=== PATIENT | male | born 1965 | race Caucasian/White ===

== ENCOUNTER 2019-01-22 16:47 | Observation (INO) ==
[2019-01-22 17:38] LABS: Basophils % 0.1 % (0.1-2.0); Eosinophils % 0.1 % (0.1-12.0); Hematocrit 44.1 % (42.0-52.0); Lymphocytes # 1.4 K/mm3 (0.7-4.5); Lymphocytes % 9.7 % (10-50); Mean Corpuscular HGB Conc 34.1 g/dL (31.8-35.4); Mean Platelet Volume 7.6 fl (7.4-10.4); Monocytes # 1.3 K/mm3 (0.1-1.0); Monocytes % 8.6 % (1.7-9.3); Neutrophils # 11.9 K/mm3 (1.8-7.8); Neutrophils % 81.3 % (37.0-80.0); Platelet Count 246 K/mm3 (142-424); Red Blood Count 4.96 M/mm3 (4.60-6.20); Red Cell Distribution Width 13.2 % (11.5-17.5); White Blood Count 14.7 K/mm3 (4.8-10.8)
--- NOTE | 2019-01-22 17:39 | Emergency Department Note ---
ED Disposition Clinical Impression: Dental abscess, Sialadenitis, Trismus Disposition: Admitted as Observation Condition on Discharge: Fair Referrals: Kelvin Arboleda MD [Primary Care Provider] - Time of Disposition: 19:39 - Critical Care Critical Care Time: No Attestation: On , the high probability of a clinically significant, sudden or life threatening deterioration of the following system(s) required my full and direct attention, intervention and personal management. The time I documented below is in addition to time spent performing reported procedures but includes the following listed in this critical care notation. Medical Decision Making - Medical Records Medical records reviewed: Yes: I reviewed the patient's medical records. - [place] Inquiry Pt receiving controlled substance: No [place] was queried for this patient: No Vital Signs: 01/22/19 16:48 01/22/19 17:01 01/22/19 17:48 Temperature 100.4 F H Temperature Source Oral Pulse Rate [Right Brachial] 100 H 115 H 109 H Respiratory Rate 18 Blood Pressure [Right Arm] 178/100 H 179/95 H 180/109 H Blood Pressure Mean [Right Arm] 126 123 132 Blood Pressure Source [Right Arm] Automatic Cuff Blood Pressure Position [Right Arm] Sitting 02 Sat by Pulse Oximetry 93 L 97 94 L Oxygen Delivery Method Room Air 01/22/19 18:47 Temperature Temperature Source Pulse Rate [Right Brachial] 111 H Respiratory Rate Blood Pressure [Right Arm] 188/110 H Blood Pressure Mean [Right Arm] 136 Blood Pressure Source [Right Arm] Blood Pressure Position [Right Arm] 02 Sat by Pulse Oximetry 94 L Oxygen Delivery Method - Lab Data Lab results reviewed: Yes: I reviewed the patient's lab results. Lab Results 01/22/19 17:25: WBC 14.7 H, RBC 4.96, Hgb 15.0, Hct 44.1, MCV 89.0, MCH 30.3, MCHC 34.1, RDW 13.2, Plt Count 246, MPV 7.6, Neut % (Auto) 81.3 H, Lymph % (Auto) 9.7 L, [place] % (Auto) 8.6, Eos % (Auto) 0.1, Baso % (Auto) 0.1, Neut # (Auto) 11.9 H, Lymph # (Auto) 1.4, [place] # (Auto) 1.3 H, Eos # (Auto) 0.0, Baso # (Auto) 0.0 01/22/19 17:25: Sodium 136, Potassium 3.5, Chloride 98, Carbon Dioxide 27, Anion Gap 14.5, BUN 7, Creatinine 0.83, Estimated Creat Clear 135, Estimated GFR 98, Est GFR ( Amer) 118, Glucose 127 H, Calcium 9.4, Total Bilirubin 1.1 H, AST 19, ALT 56, Alkaline Phosphatase 89, Total Protein 7.8, Albumin 3.6, Globu juvenal 4.2 H, Albumin/Globulin Ratio 0.9 L 01/22/19 17:25: Lactate 1.5 Result diagrams: 01/22/19 17:25 01/22/19 17:25 Orders (Tests/Meds): ED MEDICATIONS Discontinued Medications Generic Name Dose Route Start Last Admin Trade Name Mekhiq PRN Reason Stop Dose Admin Ioversol 75 ml 01/22/19 18:08 01/22/19 18:09 Rad-Optiray 350 100ml Vial IV 01/22/19 18:09 75 ml ONCE ONE Administration Protocol Methylprednisolone Sodium Succinate 125 mg 01/22/19 17:28 01/22/19 17:48 Solu-Medrol 125mg/2ml Vial IV 01/22/19 17:29 125 mg ONCE ONE Administration Sodium Chloride 10 ml 01/22/19 18:08 01/22/19 18:09 Rad-Saline Flush 10ml Syringe IV 01/22/19 18:09 10 ml ONCE ONE Administration ORDERS Category Date Time Status CT facial bones w con Stat Cat Scan 01/22/19 17:34 Taken Blood Culture Stat Micro 01/22/19 17:50 Received - Physician Consults Physician Consulted: luis Time: 19:37 Reason -: Pt condition Additional Consult: ashley Time: 19:37 Reason -: Admission General Adult HPI - General Chief complaint: Fever Stated complaint: Swollen/Sore Throat/Low-Grade Fever Time Seen by Provider: 01/22/19 17:36 Mode of Arrival: Family Vehicle Source of Information: Patient, Spouse Limitations: No Limitations Description of Symptoms (Recalled from ER Triage Doc. by RN): right side jaw swollen, possible abscess; difficulty swallowing due to the swelling. - History of Present Illness HPI narrative: ? odontogenic - Related Data Allergies Allergy/AdvReac Type Severity Reaction Status Date / Time NO KNOWN DRUG ALLERGIES - Allergy Unknown Uncoded 05/18/17 14:47 NKDA [facility] History - Hepatitis A Screen Drug use history?: No High risk sexual behaviors?: No History of sexually transmitted infection?: No Currently employed?: No Childcare worker?: No Do you have indoor plumbing?: Yes Do you have electricity?: Yes Attestation statement:: This patient has been screened for Hepatitis A risk factors. I have reviewed the patient's past medical history: Yes ROS Obtained: Yes All systems reviewed & no additional complaints - Constitutional Constitutional: Reports fever(s) - ENT Ears, Nose, Mouth, and Throat: Reports facial pain - Integumentary/Breasts Skin/Breast: Reports skin pain, Reports skin swelling Physical Exam - General General appearance: alert - Head Head exam: atraumatic - Eye Eye exam: Present: normal appearance, PERRL, EOMI - ENT ENT exam: Present: other (markedly decreased oral aperture, pain) - Neck Neck exam: Present: normal inspection, full ROM, trachea midline. Absent: meningismus, lymphadenopathy - Chest Chest inspection: Present: normal inspection, symmetric chest wall rise. Absent: tenderness - Respiratory Respiratory exam: Present: normal lung sounds bilaterally. Absent: respiratory distress - Cardiovascular Cardiovascular exam: Present: regular rate, normal rhythm. Absent: JVD - Extremities Exam Extremities exam: Present: normal inspection, full ROM, normal capillary refill. Absent: calf tenderness - Back Exam Back exam: Present: normal inspection. Absent: tenderness - Neurological Exam Neurological exam: Present: alert, oriented X3, CN II-XII intact - Psychiatric Psychiatric exam: Present: normal affect, normal mood - Skin Skin exam: Present: warm, dry, intact, normal color - Lymphatic Lymphatic Findings: no adenopathy
[2019-01-22 17:52] LABS: Albumin Level 3.6 gm/dL (3.4-5.0); Albumin/Globulin Ratio 0.9 (1.1-1.8); Anion Gap 14.5 mEq/L (5-15); Bilirubin,Total 1.1 mg/dL (0.2-1.0); Calcium 9.4 mg/dL (8.5-10.1); Globulin 4.2 gm/dl (1.3-3.2); Total Protein,Serum 7.8 gm/dL (6.4-8.2)
--- NOTE | 2019-01-23 07:34 | Pharmacy Consult Notes ---
[facility] Pharmacy VTE Monitoring - Patient Demographics Admission date: 01/22/19 Report Date: 01/23/19 Time: 07:34 Allergies/Adverse Reactions: Patient Allergies NO KNOWN DRUG ALLERGIES - NKDA Allergy (Unknown, Uncoded 05/18/17 14:47) Height: 1.65 m Weight: 94.801 kg Patient Problems: Current Active Problems Dental abscess (Acute) Sialadenitis (Acute) Trismus (Acute) - VTE Risk Labs: VTE Related Lab Results Hgb 15.0 g/dL (14.1-18.0) 01/22/19 17:25 Hct 44.1 % (42.0-52.0) 01/22/19 17:25 Plt Count 246 K/mm3 (142-424) 01/22/19 17:25 BUN 7 mg/dL (7-18) 01/22/19 17:25 Creatinine 0.83 mg/dL (0.70-1.30) 01/22/19 17:25 Estimated Creat Clear 135 mL/min (50-200) 01/22/19 17:25 Was VTE Risk Assessment Performed: Yes VTE Score: 2 VTE Risk Level: Very Low Risk - Prophylaxis VTE Prophylaxis Ordered?: Yes Types of VTE Prophylaxis: TEDS Knee High Location of Applied Device: Bilateral Lower Extremeties - VTE Diagnosis Confirmed Treatment or plan recommended: Continue Current Treatment
--- NOTE | 2019-01-23 08:05 | History & Physical Report ---
*Admission Date: 01/22/19 *Chief complaint: Right-sided facial swelling/fever *History of present illness: 53-year-old white male with history of hypertension and extremely poor dentition with no dental care over the past several decades, who came to the emergency department with right-sided lower facial pain and swelling. Clinically was felt to have an abscess in the right mandibular area. Antibiotics were started and CT scan was done which which revealed no significant drainable abscess. Recommended to admit to hospital and begin broad-spectrum IV antibiotics. [facility] History I have reviewed the patient's past medical history: Yes Medical History: Reports:: Hypertension Denies:: Cancer, Diabetes Mellitus Type 1, Diabetes Mellitus Type 2, MRSA *Have you ever received a pneumonia vaccine?: No *Have you received a flu vaccine this season?: No Other Surgeries: Yes: Cholecystectomy Amputation: No Fractures: No - *Social History Educational Level: Attended High School Smoking Status: Former smoker Tobacco Type: cigarettes # Packs/Day (cigarettes): 1 #Yrs smoked (if former smoker): 10 Alcohol Intake: never *Occupational Status:: employed Housing: house Household Members: spouse *Travel in the last 8 weeks: None - Psychiatric History Expresses thoughts of harming self/others: None Suicide Plan Description: No Plan Family Hx:: Cancer, Heart Attack Review of Systems - Review of Systems Review of systems:: pertinent systems reviewed and negative unless documented below - Constitutional Reports anorexia - Eyes Denies blind spots, Denies dry eyes - ENT Denies abnormal hearing, Denies poor balance, Denies dizziness - *Cardiovascular Denies chest pain, Denies chest pain at rest, Denies excessive sweating - *Respiratory Denies change in phlegm color, Denies chest congestion, Denies shortness of breath with activity - *Gastrointestinal Denies abdominal pain, Denies change in stools, Denies coffee ground vomit - *Genitourinary Denies difficulty urinating - *Musculoskeletal Denies abnormal walking - Integumentary/Breasts Denies acne, Denies change in skin color - *Neurologic Denies abnormal walking, Denies behavioral changes - Hematologic/Lymphatic Denies easy bleeding Meds Home Medications Medication Instructions Recorded Confirmed Type Aspirin [Aspir 81] 81 mg PO DAILY 01/22/19 01/22/19 History Escitalopram Oxalate 10 mg PO DAILY 01/22/19 01/22/19 History Metoprolol Tartrate [Lopressor 25 mg PO BID 01/22/19 01/22/19 History 25mg tablet] Allergies Allergy/AdvReac Type Severity Reaction Status Date / Time No Known Allergies Allergy Unverified 01/23/19 07:44 Exam Vital signs and Labs for Last 24 Hours: Temp Pulse Resp BP Pulse Ox 98.3 F 81 16 151/85 H 91 L 01/23/19 04:00 01/23/19 04:00 01/23/19 04:00 01/23/19 04:00 01/23/19 04:00 Laboratory Results - last 24 hr 01/22/19 17:25: WBC 14.7 H, RBC 4.96, Hgb 15.0, Hct 44.1, MCV 89.0, MCH 30.3, MCHC 34.1, RDW 13.2, Plt Count 246, MPV 7.6, Neut % (Auto) 81.3 H, Lymph % (Auto) 9.7 L, [place] % (Auto) 8.6, Eos % (Auto) 0.1, Baso % (Auto) 0.1, Neut # (Auto) 11.9 H, Lymph # (Auto) 1.4, [place] # (Auto) 1.3 H, Eos # (Auto) 0.0, Baso # (Auto) 0.0 01/22/19 17:25: Sodium 136, Potassium 3.5, Chloride 98, Carbon Dioxide 27, Anion Gap 14.5, BUN 7, Creatinine 0.83, Estimated Creat Clear 135, Estimated GFR 98, Est GFR ( Amer) 118, Glucose 127 H, Calcium 9.4, Total Bilirubin 1.1 H, AST 19, ALT 56, Alkaline Phosphatase 89, Total Protein 7.8, Albumin 3.6, Globul in 4.2 H, Albumin/Globulin Ratio 0.9 L 01/22/19 17:25: Lactate 1.5 I & O for Last 24 hours: Intake & Output 01/20/19 01/21/19 01/22/19 01/23/19 11:59 11:59 11:59 11:59 Intake Total 1217 / 1217 Balance 1217 / 1217 Weight 209 lb 0.007 oz Narrative: Patient is pleasant. Talkative. Obvious right sided lower mandibular swelling but this is improved over yesterday according to his . The mandible is extremely tender and the parotid gland also is tender and swollen on the right side but I cannot appreciate fluctuance or signs of abscess. Left side is fairly normal. His dentition is impressively awful, with few remaining teeth that are exhibiting significant dental disease and microabscess formation in the periodontal area. Posterior pharynx is clear. He has evidence of significant oral tobacco use. Cardiopulmonary assessment unremarkable. Good distal perfusion. Neurologic exam unremarkable. No abdominal signs or symptoms. Assessment and Plan (1) Dental abscess Current visit: Yes Status: Acute Category: Medical Code(s): K04.7 - Periapical abscess without sinus CT scan does not actually show signs of abscess but given significant swelling needs broad-spectrum antibiotics. ENT consultation. Patient will need complete dental extraction in the near future. (2) Sialadenitis Current visit: Yes Status: Acute Category: Medical Code(s): K11.20 - Sialoadenitis, unspecified Plan as above.
--- NOTE | 2019-01-23 08:17 | Pharmacy Consult Notes ---
- Pharmacy Consult Date: 01/23/19 Time: 08:14 Referring provider: DR. ONEAL Reason for Consult:: VANCOMYCIN DOSING Allergies and ADEs:: Allergies Allergy/AdvReac Type Severity Reaction Status Date / Time No Known Allergies Allergy Unverified 01/23/19 07:44 Home Medications:: Home Medications Medication Instructions Recorded Confirmed Type Aspirin [Aspir 81] 81 mg PO DAILY 01/22/19 01/22/19 History Escitalopram Oxalate 10 mg PO DAILY 01/22/19 01/22/19 History Metoprolol Tartrate [Lopressor 25 mg PO BID 01/22/19 01/22/19 History 25mg tablet] Height: 1.65 m Weight: 94.801 kg Laboratory Results:: Laboratory Results - last 24 hr 01/22/19 17:25: WBC 14.7 H, RBC 4.96, Hgb 15.0, Hct 44.1, MCV 89.0, MCH 30.3, MCHC 34.1, RDW 13.2, Plt Count 246, MPV 7.6, Neut % (Auto) 81.3 H, Lymph % (Auto) 9.7 L, [place] % (Auto) 8.6, Eos % (Auto) 0.1, Baso % (Auto) 0.1, Neut # (Auto) 11.9 H, Lymph # (Auto) 1.4, [place] # (Auto) 1.3 H, Eos # (Auto) 0.0, Baso # (Auto) 0.0 01/22/19 17:25: Sodium 136, Potassium 3.5, Chloride 98, Carbon Dioxide 27, Anion Gap 14.5, BUN 7, Creatinine 0.83, Estimated Creat Clear 135, Estimated GFR 98, Est GFR ( Amer) 118, Glucose 127 H, Calcium 9.4, Total Bilirubin 1.1 H, AST 19, ALT 56, Alkaline Phosphatase 89, Total Protein 7.8, Albumin 3.6, Globulin 4.2 H, Albumin/Globulin Ratio 0.9 L 01/22/19 17:25: Lactate 1.5 Medical History: Reports:: Hypertension Denies:: Cancer, Diabetes Mellitus Type 1, Diabetes Mellitus Type 2, MRSA Assessment and Plan (1) Dental abscess Current visit: Yes Status: Acute Category: Medical Code(s): K04.7 - Periapical abscess without sinus (2) Sialadenitis Current visit: Yes Status: Acute Category: Medical Code(s): K11.20 - Sialoadenitis, unspecified - Assessment and plan all Dx Assessment and Plan for all problems:: BASED ON PATIENT'S FACTORS, RECOMMENDED PATIENT CONTINUE WITH VANCOMYCIN 1750 MG Q12H FROM OVERNIGHT. WILL OBTAIN TROUGH LEVEL PRIOR TO DOSE IN THE AM. PHARMACY WILL FOLLOW DAILY AND ADJUST APPROPRIATE.
--- NOTE | 2019-01-23 13:25 | Consult Report ---
*Admission Date: 01/22/19 *Reason for consult:: Right submandibular sialadenitis *History of present illness: This patient presented to the ED initially for right submandibular swelling/abscess. [facility] History I have reviewed the patient's past medical history: Yes Medical History: Reports:: Hypertension Denies:: Cancer, Diabetes Mellitus Type 1, Diabetes Mellitus Type 2, MRSA *Have you ever received a pneumonia vaccine?: No *Have you received a flu vaccine this season?: No Other Surgeries: Yes: Cholecystectomy Amputation: No Fractures: No - *Social History Educational Level: Attended High School Smoking Status: Former smoker Tobacco Type: cigarettes # Packs/Day (cigarettes): 1 #Yrs smoked (if former smoker): 10 Alcohol Intake: never *Occupational Status:: employed Housing: house Household Members: spouse *Travel in the last 8 weeks: None - Psychiatric History Expresses thoughts of harming self/others: None Suicide Plan Description: No Plan Family Hx:: Cancer, Heart Attack Review of Systems - ENT Reports dental pain Comments: right facial swelling/pain secondary to dental abscess - *Neurologic Denies abnormal walking, Denies abnormal hearing, Denies behavioral changes, Denies unsteadiness, Denies dizziness Meds Home Medications Medication Instructions Recorded Confirmed Type Aspirin [Aspir 81] 81 mg PO DAILY 01/22/19 01/22/19 History Escitalopram Oxalate 10 mg PO DAILY 01/22/19 01/22/19 History Metoprolol Tartrate [Lopressor 25 mg PO BID 01/22/19 01/22/19 History 25mg tablet] Allergies Allergy/AdvReac Type Severity Reaction Status Date / Time No Known Allergies Allergy Unverified 01/23/19 07:44 Exam Vital signs and Labs for Last 24 Hours: Temp Pulse Resp BP Pulse Ox 97.9 F 91 H 18 126/75 95 01/23/19 08:00 01/23/19 08:00 01/23/19 08:00 01/23/19 08:00 01/23/19 08:00 Laboratory Results - last 24 hr 01/22/19 17:25: WBC 14.7 H, RBC 4.96, Hgb 15.0, Hct 44.1, MCV 89.0, MCH 30.3, MCHC 34.1, RDW 13.2, Plt Count 246, MPV 7.6, Neut % (Auto) 81.3 H, Lymph % (Auto) 9.7 L, [place] % (Auto) 8.6, Eos % (Auto) 0.1, Baso % (Auto) 0.1, Neut # (Auto) 11.9 H, Lymph # (Auto) 1.4, [place] # (Auto) 1.3 H, Eos # (Auto) 0.0, Baso # (Auto) 0.0 01/22/19 17:25: Sodium 136, Potassium 3.5, Chloride 98, Carbon Dioxide 27, Anion Gap 14.5, BUN 7, Creatinine 0.83, Estimated Creat Clear 135, Estimated GFR 98, Est GFR ( Amer) 118, Glucose 127 H, Calcium 9.4, Total Bilirubin 1.1 H, AST 19, ALT 56, Alkaline Phosphatase 89, Total Protein 7.8, Albumin 3.6, Globulin 4.2 H, Albumin/Globulin Ratio 0.9 L 01/22/19 17:25: Lactate 1.5 I & O for Last 24 hours: Intake & Output 01/20/19 01/21/19 01/22/19 01/23/19 23:59 23:59 23:59 23:59 Intake Total 150 / 150 1487 / 1487 Balance 150 / 150 1487 / 1487 Weight 209 lb 1 oz 209 lb 0.007 oz - *Routine HEENT Exam Head: Present: normocephalic Eye: Present: EOMI, PERRL ENT: Present: mucous membranes moist Comments: Right submandibular sialadenitis had improved since admission on steroid and antibiotic treatment. Does however have a right dental abscess and needs to follow-up with his dentist as that was probably a factor in initiating the sialadenitis. He will follow-up with me as necessary. Dr. Bradley Richards please send a copy to Dr. Galeana and to Dr. Erik Hewitt Internal Medicine - CN: Reslt - Labs CBC & Chem 7: 01/22/19 17:25 01/22/19 17:25 Labs: Short CBC 01/22/19 Range/Units 17:25 WBC 14.7 H (4.8-10.8) K/mm3 Hgb 15.0 (14.1-18.0) g/dL Hct 44.1 (42.0-52.0) % Plt Count 246 (142-424) K/mm3 BMP 01/22/19 17:25 Sodium 136 Potassium 3.5 Chloride 98 Carbon Dioxide 27 BUN 7 Creatinine 0.83 Glucose 127 H Calcium 9.4 Liver Function 01/22/19 Range/Units 17:25 Total Bilirubin 1.1 H (0.2-1.0) mg/dL AST 19 (15-37) U/L ALT 56 (12-78) U/L Alkaline Phosphatase 89 (46-116) U/L Albumin 3.6 (3.4-5.0) gm/dL Assessment and Plan (1) Dental abscess Current visit: Yes Status: Acute Category: Medical Code(s): K04.7 - Periapical abscess without sinus (2) Sialadenitis Current visit: Yes Status: Acute Category: Medical Code(s): K11.20 - Sialoadenitis, unspecified - Assessment and plan all Dx Assessment and Plan for all problems:: Right submandibular sialadenitis had improved since admission on steroid and antibiotic treatment. Does however have a right dental abscess and needs to follow-up with his dentist as that was probably a factor in initiating the sialadenitis. He will follow-up with me as necessary. Dr. Bradley Richards please send a copy to Dr. Galeana and to Dr. Erik Hewitt
--- NOTE | 2019-01-23 13:52 | Discharge Summary ---
General - General Admission date:: 01/22/19 Discharge date: 01/23/19 HPI HPI: 53-year-old white male with history of hypertension and extremely poor dentition with no dental care over the past several decades, who came to the emergency department with right-sided lower facial pain and swelling. Clinically was felt to have an abscess in the right mandibular area. Antibiotics were started and CT scan was done which which revealed no significant drainable abscess. Recommended to admit to hospital and begin broad-spectrum IV antibiotics. Hospital Course Hospital Course: Patient was admitted as noted, improved overnight with Solu-Medrol and broad- spectrum antibiotics. ENT evaluation occurred, recommended dental evaluation and follow-up with antibiotics. Patient will be discharged with a soft diet, Augmentin and clindamycin, recommended dental evaluation GIULIA. Objective Vital signs: Temp Pulse Resp BP Pulse Ox 97.9 F 91 H 18 126/75 95 01/23/19 08:00 01/23/19 08:00 01/23/19 08:00 01/23/19 08:00 01/23/19 08:00 Narrative: See exam note from H&P dictated this morning Results Labs on day of discharge: Labs from last 24 hours 01/22/19 01/22/19 01/22/19 17:25 17:25 17:25 WBC 14.7 H RBC 4.96 Hgb 15.0 Hct 44.1 MCV 89.0 MCH 30.3 MCHC 34.1 RDW 13.2 Plt Count 246 MPV 7.6 Neut % (Auto) 81.3 H Lymph % (Auto) 9.7 L [place] % (Auto) 8.6 Eos % (Auto) 0.1 Baso % (Auto) 0.1 Neut # (Auto) 11.9 H Lymph # (Auto) 1.4 [place] # (Auto) 1.3 H Eos # (Auto) 0.0 Baso # (Auto) 0.0 Sodium 136 Potassium 3.5 Chloride 98 Carbon Dioxide 27 Anion Gap 14.5 BUN 7 Creatinine 0.83 Estimated Creat Clear 135 Estimated GFR 98 Est GFR ( Amer) 118 Glucose 127 H Lactate 1.5 Calcium 9.4 Total Bilirubin 1.1 H AST 19 ALT 56 Alkaline Phosphatase 89 Total Protein 7.8 Albumin 3.6 Globulin 4.2 H Albumin/Globulin Ratio 0.9 L DS: Diagnosis - Discharge Diagnosis (1) Dental abscess Status: Acute (2) Sialadenitis Status: Acute Discharge Plan - Patient Discharge Instructions ACTIVITY: Continue current activity DIET: continue same diet Patient Instructions: Tooth Abscess, DI for Fever (Symptom) -- Adult - Follow up Plan Follow up with: Kelvin Arboleda MD [Primary Care Provider] - 2 weeks Disposition: Home, Self-Senior Living Medications: Home Medications Medication Instructions Recorded Confirmed Type Aspirin [Aspir 81] 81 mg PO DAILY 01/22/19 01/22/19 History Metoprolol Tartrate [Lopressor 25 mg PO BID 01/22/19 01/22/19 History 25mg tablet] RX: Escitalopram Oxalate 10 mg PO DAILY 01/22/19 01/22/19 History Amoxicillin/Potassium Clav 1 tab PO Q12H #20 tab 01/23/19 Rx [Augmentin 875-125 Tablet] Clindamycin HCl [Clindamycin HCl 300 mg PO Q8 #21 cap 01/23/19 Rx 300mg Cap] RX: dexAMETHasone [Decadron 4mg 4 mg PO TID #15 tab 01/23/19 Rx tablet] Prescriptions/Medication Reconciliation: New RX: dexAMETHasone [Decadron 4mg tablet] 4 mg PO TID #15 tab Amoxicillin/Potassium Clav [Augmentin 875-125 Tablet] 1 tab PO Q12H #20 tab Clindamycin HCl [Clindamycin HCl 300mg Cap] 300 mg PO Q8 #21 cap Continued RX: Escitalopram Oxalate 10 mg PO DAILY Aspirin [Aspir 81] 81 mg PO DAILY Metoprolol Tartrate [Lopressor 25mg tablet] 25 mg PO BID - Problem Reconciliation Problems Reviewed?: Yes
== END 2019-01-23 15:13 | disposition home or self-care (01) ==
LOC: ER 16:47 → 2ND 16:47
PROVIDERS: ADMIT Internal Medicine Adolescent Medicine; ATTEND Internal Medicine Adolescent Medicine
CPT/HCPCS: 36415; 70487; 80053; 83605; 85025; 87040; 96365; 96367; 96375; 99284; G0378; J2543; J3370; Q9967

== ENCOUNTER → 2019-04-29 10:56 | Outpatient (CLI) | payer OTHER, SELFPAY ==
[2019-04-29 13:38] LABS: Alanine Aminotransferase 51 U/L (12-78); Albumin Level 3.8 gm/dL (3.4-5.0); Albumin/Globulin Ratio 1.2 (1.1-1.8); Alkaline Phosphatase 100 U/L (46-116); Anion Gap 14.2 mEq/L (5-15); Aspartate Amino Transferase 27 U/L (15-37); Bilirubin,Total 0.4 mg/dL (0.2-1.0); Blood Urea Nitrogen 12 mg/dL (7-18); Calcium 9.3 mg/dL (8.5-10.1); Carbon Dioxide 26 mmol/L (21.0-32.0); Chloride 102 mmol/L (98-107); Chol/HDL Ratio 3.7 (1-3.5); Cholesterol 185 mg/dL (140-200); Creatinine,Serum 0.71 mg/dL (0.70-1.30); Estimated Glomerular Filt Rate 117 ml/min (>60); GFR (African American) 142 ML/MIN (>60); Globulin 3.2 gm/dl (1.3-3.2); Glucose 108 mg/dL (74-106); HDL Cholesterol 50 mg/dL (27-67); LDL Cholesterol 106 mg/dL (0-130); Potassium 4.2 mmoL/L (3.5-5.1); Sodium 138 mmol/L (136-145); Triglycerides 146 mg/dL (30-200); VLDL Cholesterol 29 mg/dL (0-40)
== END ==
PROVIDERS: Visit Provider Internal Medicine Adolescent Medicine
DX: I10 Essential (primary) hypertension (principal); Z86.39 Personal history of other endocrine, nutritional and metabolic disease
CPT/HCPCS: 36415; 80053; 80061

== ENCOUNTER → 2021-06-28 08:01 | Outpatient (CLI) | payer OTHER, SELFPAY | PROVIDERS: Visit Provider Nurse Practitioner | DX: U07.1 COVID-19 (principal) | CPT/HCPCS: C9803; U0003; U0005 ==

== ENCOUNTER → 2021-07-06 08:19 | Outpatient (CLI) | payer OTHER, SELFPAY | PROVIDERS: Visit Provider Nurse Practitioner | DX: U07.1 COVID-19 (principal) | CPT/HCPCS: C9803; U0003; U0005 ==

== ENCOUNTER 2023-01-27 18:52 | Emergency (ER) | payer OTHER, SELFPAY ==
[2023-01-27 18:52] VITALS: BP 189/100; PULSE 92; RESP 16; TEMP 36.6; O2SAT 98; BMI 32.1
--- NOTE | 2023-01-27 18:53 | ECG_ITS ---
APPROVED REPORT Exam: Resting ECG HR:84 bpm ECG Measurements Heart Rate 84 AXES MD 166 P 15 QRSd 91 QRS 31 QT 354 T 58 QTc 395 Conclusion SINUS RHYTHM NORMAL ECG UNCONFIRMED REPORT Electronically signed by : Kelvin Arboleda MD 01/28/2023 18:33:27
--- NOTE | 2023-01-27 18:59 | XR_ITS ---
PROCEDURE INFORMATION: Exam: XR Chest Exam date and time: 01/27/2023 7:05 PM Age: 57 years old Clinical indication: Sternal or substernal pain; Additional info: Chest pain TECHNIQUE: Imaging protocol: Radiologic exam of the chest. Views: 1 view. COMPARISON: No relevant prior studies available. FINDINGS: Lungs: No evidence of acute airspace consolidation. No pulmonary edema. Pleural spaces: No large pleural effusion. No pneumothorax. Heart/Mediastinum: Cardiomediastinal silouhette is within normal limits. Bones/joints: No evidence of acute osseous abnormality. IMPRESSION: No acute findings.
[2023-01-27 19:12] LABS: Basophils % 0.5 % (0.1-2.0); Eosinophils # 0.2 K/mm3 (0.0-0.4); Eosinophils % 2.6 % (0.1-12.0); Hematocrit 44.6 % (42.0-52.0); Hemoglobin 15.4 g/dL (14.1-18.0); Lymphocytes # 2.2 K/mm3 (0.7-4.5); Mean Corpuscular HGB Conc 34.5 g/dL (31.8-35.4); Mean Corpuscular Volume 86.9 fl (80-94); Monocytes # 0.4 K/mm3 (0.1-1.0); Monocytes % 5.7 % (1.7-9.3); Neutrophils # 4.5 K/mm3 (1.8-7.8); Neutrophils % 61.3 % (37.0-80.0); Platelet Count 353 K/mm3 (142-424); Red Blood Count 5.13 M/mm3 (4.60-6.20); Red Cell Distribution Width 13.8 % (11.5-17.5); White Blood Count 7.4 K/mm3 (4.8-10.8)
[2023-01-27 19:16] LABS: Alanine Aminotransferase 31 U/L (12-78); Albumin Level 4.7 g/dl (3.5-5.0); Albumin/Globulin Ratio 1.3 (1.1-1.8); Alkaline Phosphatase 99 U/L (38-126); Anion Gap 13.1 mEq/L (5-15); Aspartate Amino Transferase 30 U/L (17-59); Blood Urea Nitrogen 11 mg/dl (9-20); Calcium 9.5 mg/dl (8.4-10.2); Carbon Dioxide 28 mmol/L (22.0-30.0); Chloride 102 mmol/L (98-107); Creatinine Clearance Estimated 148 mL/min (50-200); Estimated Glomerular Filt Rate 117 ml/min (>60); GFR (African American) 142 ML/MIN (>60); Globulin 3.5 g/dL (1.3-3.2); Glucose 98 mg/dl (74-100); Potassium 3.1 mmoL/L (3.5-5.1); Sodium 140 mmol/L (136-145); Total Protein,Serum 8.2 g/dl (6.3-8.2)
[2023-01-27 19:30] LABS: Troponin I < 0.01 ng/ml (0.00-0.034)
[2023-01-27 20:32] VITALS: BP 163/97; PULSE 69; RESP 16; TEMP 36.7; O2SAT 97
[2023-01-27 20:42] VITALS: BP 163/91; PULSE 69; RESP 16; TEMP 36.7; O2SAT 97
--- NOTE | 2023-01-29 13:58 | HMH.EDGENADL ---
Discharge Plan Disposition Patient Disposition: Home, Self-Care Condition: Good Prescriptions Prescriptions: New metoprolol succinate 25 mg tablet extended release 24 hr 25 mg PO BID Qty: 20 0RF Discontinued metoprolol tartrate 25 MG tablet 25 mg PO BID No Action aspirin 81 MG tablet,delayed release (DR/EC) 81 mg PO DAILY escitalopram oxalate 10 MG tablet 10 mg PO DAILY clindamycin HCl 300 MG capsule 300 mg PO Q8 Qty: 21 0RF dexamethasone 4 MG tablet 4 mg PO TID Qty: 15 0RF amoxicillin-pot clavulanate 1 EACH tablet 1 tab PO Q12H Qty: 20 0RF Referrals Follow up/Referrals: Kelvin Arboleda MD [Primary Care Provider] - See instructions Clinical Impressions Clinical Impression: Hypertensive urgency Instructions Patient Instructions: Essential Hypertension Discharge ED Provider: Rony Danielle Adult HPI General Chief complaint: Chest Pain Stated complaint: CP Time Seen by Provider: 01/27/23 20:17 Mode of Arrival: Ambulatory Source of Information: Patient Limitations: No Limitations Description of Symptoms (Recalled from ER Triage Doc. by RN): pt c/o achy chest pain episodes x couple day. History of Present Illness HPI narrative: Patient presents for evaluation of substernal nonradiating nonpleuritic nonexertional nonpositional chest pain described as dull with no associated palpitations or dyspnea. Patient has had similar symptoms before associated with hypertension. Has not seen a doctor in several years. Was previously prescribed antihypertensive but is not sure what that medication was at this time. Denies any recreational drug use. No sick contacts, no fevers no chills no nausea no vomiting. No syncope or presyncope. No leg pain or leg swelling. No associated vision complaints or headache. No previous therapies today. Patient does have history of tobacco use. No family history of sudden or MA at young age. Denies any dysuria or dark urine Related Data Home Medications Medication Instructions Recorded Confirmed aspirin 81 mg tablet,delayed 81 mg PO DAILY HEART HEALTH 01/22/19 01/22/19 release escitalopram oxalate 10 mg tablet 10 mg PO DAILY MOOD 01/22/19 01/22/19 Previous Rx's Medication Instructions Recorded amoxicillin 875 mg-potassium 1 tab PO Q12H #20 tabs 01/23/19 clavulanate 125 mg tablet clindamycin HCl 300 mg capsule 300 mg PO Q8 #21 caps 01/23/19 dexamethasone 4 mg tablet 4 mg PO TID #15 tabs 01/23/19 metoprolol succinate 25 mg 25 mg PO BID #20 tabs 01/27/23 tablet,extended release 24 hr Allergies Allergy/AdvReac Type Severity Reaction Status Date / Time No Known Allergies Allergy Unverified 01/23/19 07:44 [facility] Disclaimer: The information contained in this section may have been updated after the patient was seen, as this information can be updated by other users. Social History Smoking Status: Current every day smoker tobacco type: cigarettes packs per day: 1 second hand exposure: No alcohol intake: never current occupational status: employed Travel in the last 8 weeks: None household members: spouse housing: house current occupation: heavy machined parts metal sprayer current occupational exposures/hazards: No caffeine: Yes ROS Obtained: Yes Systems reviewed as appropriate & no additional complaints except as documented Physical Exam General General appearance: alert and in no apparent distress Head Head exam: atraumatic and normocephalic Eye Eye exam: Present normal appearance Neck Neck exam: Present normal inspection Chest Chest inspection: Present normal inspection and symmetric chest wall rise Respiratory Respiratory exam: Present normal lung sounds bilaterally; Absent respiratory distress Cardiovascular Cardiovascular exam: Present regular rate and normal rhythm Abdominal Exam Abdominal exam: Present soft Neurological Exam Neurological exam: Present alert and orie
== END 2023-01-27 20:47 | disposition home or self-care (01) ==
PROVIDERS: Emergency Provider Emergency Medicine; PCP Internal Medicine Adolescent Medicine
DX: I16.0 Hypertensive urgency (principal); R07.9 Chest pain, unspecified
CPT/HCPCS: 71045; 80053; 84484; 85025; 93005; 99285

== ENCOUNTER → 2023-02-02 15:22 | Outpatient (CLI) | payer OTHER, SELFPAY ==
[2023-02-02 17:12] LABS: Basophils % 0.3 % (0.1-2.0); Eosinophils # 0.1 K/mm3 (0.0-0.4); Eosinophils % 1.7 % (0.1-12.0); Hematocrit 42.6 % (42.0-52.0); Mean Corpuscular HGB Conc 35.2 g/dL (31.8-35.4); Mean Corpuscular Hemoglobin 30.9 pg (27.0-31.2); Mean Corpuscular Volume 87.9 fl (80-94); Mean Platelet Volume 8.4 fl (7.4-10.4); Monocytes # 0.5 K/mm3 (0.1-1.0); Monocytes % 5.7 % (1.7-9.3); Neutrophils % 69.4 % (37.0-80.0); Platelet Count 321 K/mm3 (142-424); Red Blood Count 4.85 M/mm3 (4.60-6.20); White Blood Count 8.6 K/mm3 (4.8-10.8)
[2023-02-02 17:43] LABS: Chloride 103 mmol/L (98-107)
[2023-02-02 17:44] LABS: Potassium 3.7 mmoL/L (3.5-5.1); Sodium 142 mmol/L (136-145)
[2023-02-02 17:46] LABS: Alanine Aminotransferase 31 U/L (12-78); Alkaline Phosphatase 90 U/L (38-126); Anion Gap 14.7 mEq/L (5-15); Aspartate Amino Transferase 30 U/L (17-59); Bilirubin,Total 0.8 mg/dl (0.2-1.3); Blood Urea Nitrogen 7 mg/dl (9-20); Carbon Dioxide 28 mmol/L (22.0-30.0); Estimated Glomerular Filt Rate 117 ml/min (>60); GFR (African American) 142 ML/MIN (>60)
[2023-02-02 17:47] LABS: Albumin/Globulin Ratio 1.5 (1.1-1.8); Calcium 9.7 mg/dl (8.4-10.2); Globulin 2.7 g/dL (1.3-3.2); Glucose 78 mg/dl (74-100); Magnesium 1.8 mg/dl (1.6-2.3); Total Protein,Serum 6.7 g/dl (6.3-8.2)
== END ==
LOC: LAB 15:23
PROVIDERS: PCP Internal Medicine Adolescent Medicine; Visit Provider Physician Assistant
DX: I10 Essential (primary) hypertension (principal); E87.6 Hypokalemia
CPT/HCPCS: 36415; 80053; 83735; 85025

== ENCOUNTER → 2023-02-13 08:31 | Outpatient (CLI) | payer OTHER, SELFPAY ==
[2023-02-13 09:36] LABS: Chol/HDL Ratio 6.4 (1-3.5); Cholesterol 306 mg/dl (140-200); HDL Cholesterol 48 mg/dl (40-60); Triglycerides 215 mg/dl (30-150); VLDL Cholesterol 43 mg/dL (0-40)
[2023-02-13 09:54] LABS: 25-OH Vitamin D, Total 21.9 ng/mL (30-100)
[2023-02-13 10:07] LABS: Thyroid Stimulating Hormone 3.64 uIU/mL (0.465-4.68)
[2023-02-13 10:25] LABS: Vitamin B12 186 pg/mL (239-931)
== END ==
PROVIDERS: PCP Physician Assistant; Visit Provider Physician Assistant
DX: Z00.00 Encounter for general adult medical examination without abnormal findings (principal); E55.9 Vitamin D deficiency, unspecified; Z79.899 Other long term (current) drug therapy
CPT/HCPCS: 36415; 80061; 82306; 82607; 83036; 84443

== ENCOUNTER → 2023-05-21 09:29 | Outpatient (CLI) | payer OTHER, SELFPAY ==
[2023-05-21 10:50] LABS: Chloride 102 mmol/L (98-107); Potassium 3.7 mmoL/L (3.5-5.1); Sodium 141 mmol/L (136-145)
[2023-05-21 10:52] LABS: Alanine Aminotransferase 24 U/L (12-78); Aspartate Amino Transferase 27 U/L (17-59); Blood Urea Nitrogen 12 mg/dl (9-20); Estimated Glomerular Filt Rate 117 ml/min (>60); GFR (African American) 141 ML/MIN (>60)
[2023-05-21 10:53] LABS: Albumin Level 4.2 g/dl (3.5-5.0); Albumin/Globulin Ratio 1.7 (1.1-1.8); Alkaline Phosphatase 101 U/L (38-126); Anion Gap 10.7 mEq/L (5-15); Bilirubin,Total 0.7 mg/dl (0.2-1.3); Calcium 9.2 mg/dl (8.4-10.2); Carbon Dioxide 32 mmol/L (22.0-30.0); Chol/HDL Ratio 3.5 (1-3.5); Cholesterol 149 mg/dl (140-200); Globulin 2.5 g/dL (1.3-3.2); Glucose 115 mg/dl (74-100); HDL Cholesterol 42 mg/dl (40-60); Total Protein,Serum 6.7 g/dl (6.3-8.2); Triglycerides 119 mg/dl (30-150); VLDL Cholesterol 24 mg/dL (0-40)
[2023-05-21 11:05] LABS: Direct LDL Cholesterol 86.07 mg/dL (100-129)
[2023-05-21 11:10] LABS: 25-OH Vitamin D, Total 36.4 ng/mL (30-100)
[2023-05-21 11:46] LABS: Vitamin B12 > 1000 pg/mL (239-931)
== END ==
LOC: LAB 09:30
PROVIDERS: PCP Internal Medicine Adolescent Medicine; Visit Provider Physician Assistant
DX: I10 Essential (primary) hypertension (principal); E55.9 Vitamin D deficiency, unspecified; E53.8 Deficiency of other specified B group vitamins; E78.2 Mixed hyperlipidemia
CPT/HCPCS: 36415; 80053; 80061; 82306; 82607

== ENCOUNTER 2024-02-26 09:01 | Outpatient (CLI) | payer BC, SELFPAY ==
[2024-02-26 10:04] LABS: Alanine Aminotransferase 38 U/L (12-78); Albumin Level 3.9 g/dl (3.5-5.0); Albumin/Globulin Ratio 1.6 (1.1-1.8); Alkaline Phosphatase 104 U/L (38-126); Anion Gap 7.8 mEq/L (5-15); Aspartate Amino Transferase 32 U/L (17-59); Bilirubin,Total 0.8 mg/dl (0.2-1.3); Blood Urea Nitrogen 11 mg/dl (9-20); Carbon Dioxide 25 mmol/L (22.0-30.0); Chloride 105 mmol/L (98-107); Chol/HDL Ratio 3.9 (1-3.5); Cholesterol 149 mg/dl (140-200); Estimated Glomerular Filt Rate 139 ml/min (>60); GFR (African American) 169 ML/MIN (>60); Globulin 2.5 g/dL (1.3-3.2); Glucose 105 mg/dl (74-100); HDL Cholesterol 38 mg/dl (40-60); Potassium 3.8 mmoL/L (3.5-5.1); Sodium 134 mmol/L (136-145); Total Protein,Serum 6.4 g/dl (6.3-8.2); Triglycerides 185 mg/dl (30-150); VLDL Cholesterol 37 mg/dL (0-40)
[2024-02-26 10:15] LABS: Direct LDL Cholesterol 81.07 mg/dL (100-129)
[2024-02-26 10:16] LABS: Basophils % 0.5 % (0.1-2.0); Eosinophils # 0.2 K/mm3 (0.0-0.4); Eosinophils % 2.8 % (0.1-12.0); Hematocrit 42.7 % (42.0-52.0); Hemoglobin 14.4 g/dL (14.1-18.0); Lymphocytes % 23.8 % (10-50); Mean Corpuscular HGB Conc 33.7 g/dL (31.8-35.4); Mean Corpuscular Volume 91.8 fl (80-94); Mean Platelet Volume 8.2 fl (7.4-10.4); Monocytes # 0.7 K/mm3 (0.1-1.0); Monocytes % 8.3 % (1.7-9.3); Neutrophils # 5.3 K/mm3 (1.8-7.8); Neutrophils % 64.7 % (37.0-80.0); Platelet Count 303 K/mm3 (142-424); Red Blood Count 4.65 M/mm3 (4.60-6.20); Red Cell Distribution Width 13.9 % (11.5-17.5); White Blood Count 8.2 K/mm3 (4.8-10.8)
[2024-02-26 10:21] LABS: 25-OH Vitamin D, Total 36.2 ng/mL (30-100); Hemoglobin A1C 5.9 % (4.0-6.0)
[2024-02-26 10:34] LABS: Thyroid Stimulating Hormone 2.89 uIU/mL (0.465-4.68)
[2024-02-26 10:53] LABS: Vitamin B12 522 pg/mL (239-931)
== END 2024-02-26 23:59 | disposition home or self-care (01) ==
LOC: LAB 09:03
PROVIDERS: PCP Physician Assistant; Visit Provider Physician Assistant
DX: Z00.00 Encounter for general adult medical examination without abnormal findings (principal); I10 Essential (primary) hypertension; Z83.49 Family history of other endocrine, nutritional and metabolic diseases; E66.9 Obesity, unspecified; R53.83 Other fatigue; Z68.35 Body mass index [BMI] 35.0-35.9, adult; Z83.3 Family history of diabetes mellitus; Z86.39 Personal history of other endocrine, nutritional and metabolic disease; Z72.0 Tobacco use
CPT/HCPCS: 36415; 80050; 80053; 80061; 82306; 82607; 83036; 84443; 85025

== ENCOUNTER 2024-07-19 16:21 | Outpatient (CLI) | payer BC, SELFPAY ==
--- NOTE | 2024-07-19 | XR_ITS ---
PROCEDURE INFORMATION: Exam: XR Chest Exam date and time: 07/19/2024 4:41 PM Age: 59 years old Clinical indication: Shortness of breath TECHNIQUE: Imaging protocol: Radiologic exam of the chest. Views: 2 views. COMPARISON: CR XR CHEST PORTABLE 01/27/2023 7:05 PM FINDINGS: Lungs: Increased pulmonary markings in the central right lower lobe. Left lower lobe scarring/atelectasis. Pleural spaces: Unremarkable. No pleural effusion. No pneumothorax. Heart/Mediastinum: Unremarkable. No cardiomegaly. Bones/joints: Unremarkable. IMPRESSION: Possible evolving right lower lobe infection, correlate clinically.
== END 2024-07-19 23:59 | disposition home or self-care (01) ==
PROVIDERS: PCP Internal Medicine Adolescent Medicine; Visit Provider Nurse Practitioner Family
DX: R06.02 Shortness of breath (principal)
CPT/HCPCS: 71046

== ENCOUNTER 2024-08-10 07:24 | Outpatient (CLI) | payer BC, SELFPAY ==
[2024-08-10] MEDS: ALBUTEROL 0.083% 2.5 MG/3 ML NEB IH (08:19)
--- NOTE | 2024-08-10 08:20 | PC.NURSE ---
PFT completed without incident. Albuterol 0.083% given via [facility]N, per written protocol, Pt tolerated tx well.
--- NOTE | 2024-08-10 08:58 | CT_ITS ---
FINAL REPORT TECHNIQUE: Axial images were obtained from the lung apex to the mid abdomen by computed tomography. Coronal reformatted images were obtained. This study was performed with techniques to keep radiation doses as low as reasonably achievable, (ALARA). Individualized dose reduction techniques using automated exposure control or adjustment of mA and/or kV according to the patient's size were employed. CLINICAL HISTORY: LUNG FIBROSIS/ATELECTASIS/ABNORMAL LUNG CXR COMPARISON: None FINDINGS: There is no axillary adenopathy. There is no mediastinal adenopathy. There are calcified hilar lymph nodes. The heart is normal size. Calcified granulomas are noted at the right base. There is scarring noted in the posterior bases. There is no pericardial or pleural effusion. There is no suspicious pulmonary nodule or infiltrate identified. Limited images of the upper abdomen demonstrate the gallbladder to be absent.. IMPRESSION: Scarring in the posterior bases. Old calcified granulomatous disease. Reviewed, Interpreted and Dictated by Peter Bajwa MD Transcribed by Mary Alice Fernando Authenticated and [facility]
== END 2024-08-10 23:59 | disposition home or self-care (01) ==
LOC: RT 07:25
PROVIDERS: PCP Internal Medicine Adolescent Medicine; Visit Provider Nurse Practitioner Family
DX: J84.10 Pulmonary fibrosis, unspecified (principal); J98.11 Atelectasis; R91.8 Other nonspecific abnormal finding of lung field
CPT/HCPCS: 71250; 94060; 94726; 94729; J7613

== ENCOUNTER 2025-02-16 16:50 | Outpatient (CLI) | payer BC, SELFPAY ==
[2025-02-16 17:16] LABS: Hematocrit 39.7 % (42.0-52.0); Hemoglobin 14.1 g/dL (14.1-18.0); Immature Granulocytes % 0.1 %; Mean Corpuscular HGB Conc 35.5 g/dL (31.8-35.4); Mean Corpuscular Hemoglobin 30.6 pg (27.0-31.2); Mean Corpuscular Volume 86.1 fl (80-94); Nucleated Red Blood Cells % 0 %; Platelet Count 278 K/mm3 (142-424); Red Blood Count 4.61 M/mm3 (4.60-6.20); Red Cell Distribution Width-SD 40.3 fL; White Blood Count 6.7 K/mm3 (4.8-10.8)
[2025-02-16 18:04] LABS: Albumin Level 4.4 g/dl (3.5-5.0); Chloride 99 mmol/L (98-107); Potassium 3.9 mmoL/L (3.5-5.1); Sodium 137 mmol/L (136-145)
[2025-02-16 18:07] LABS: Alanine Aminotransferase 24 U/L (12-78); Albumin/Globulin Ratio 1.8 (1.1-1.8); Alkaline Phosphatase 80 U/L (38-126); Anion Gap 15.9 mEq/L (5-15); Aspartate Amino Transferase 27 U/L (17-59); Bilirubin,Total 0.7 mg/dl (0.2-1.3); Blood Urea Nitrogen 8 mg/dl (9-20); Carbon Dioxide 26 mmol/L (22.0-30.0); Cholesterol 192 mg/dl (140-200); Creatinine,Serum 0.70 mg/dl (0.66-1.25); Estimated Glomerular Filt Rate 116 ml/min (>60); GFR (African American) 141 ML/MIN (>60); Globulin 2.5 g/dL (1.3-3.2); Total Protein,Serum 6.9 g/dl (6.3-8.2); Triglycerides 95 mg/dl (30-150)
[2025-02-16 18:08] LABS: Calcium 9.8 mg/dl (8.4-10.2); Glucose 93 mg/dl (74-100); HDL Cholesterol 59 mg/dl (40-60)
[2025-02-16 18:25] LABS: Free Thyroxine Index 2.6 ug/dL (5.93-13.13); T4 (Thyroxine) 8.8 ug/dl (5.53-11.0); Triiodothryronine (T3) Uptake 30 % (23.5-40.5)
[2025-02-16 18:39] LABS: Thyroid Stimulating Hormone 1.86 uIU/mL (0.465-4.68)
== END 2025-02-16 23:59 | disposition home or self-care (01) ==
PROVIDERS: PCP Internal Medicine Adolescent Medicine
DX: E78.2 Mixed hyperlipidemia (principal); I10 Essential (primary) hypertension; F33.0 Major depressive disorder, recurrent, mild
CPT/HCPCS: 36415; 80053; 80061; 84436; 84443; 84479; 85025

== ENCOUNTER 2025-05-12 09:54 | Outpatient (CLI) | payer BC, SELFPAY ==
--- OUTSIDE RECORDS SUMMARY | 2025-05-12 09:59 | XMS_ITS ---
Author Organization Unknown ENCOUNTERS Encounter Performer Location Date Diagnosis Diagnosis Status Emergency [facility] [address] [place] [address] [id number] DAR Pre Admit [facility] [address] [place] [address] [id number] *Note: Encounters from your own facility or health system may be excluded. Allergies, Adverse Reactions, Alerts Allergen Type Severity Identification Date NO KNOWN DRUG ALLERGIES - NKDA propensity to adverse reactions 0 [id number] Medications Name Date Quantity Days Supplied GPI Number
[2025-05-12 11:16] LABS: Hemoglobin A1C 5.4 % (4.0-6.0)
[2025-05-12 12:40] LABS: Alanine Aminotransferase 25 U/L (12-78); Albumin Level 4.2 g/dl (3.5-5.0); Albumin/Globulin Ratio 1.6 (1.1-1.8); Alkaline Phosphatase 93 U/L (38-126); Anion Gap 16.7 mEq/L (5-15); Aspartate Amino Transferase 31 U/L (17-59); Bilirubin,Total 1.0 mg/dl (0.2-1.3); Blood Urea Nitrogen 14 mg/dl (9-20); Calcium 9.4 mg/dl (8.4-10.2); Carbon Dioxide 24 mmol/L (22.0-30.0); Chloride 100 mmol/L (98-107); Cholesterol 128 mg/dl (140-200); Creatinine,Serum 0.70 mg/dl (0.66-1.25); Estimated Glomerular Filt Rate 116 ml/min (>60); GFR (African American) 141 ML/MIN (>60); Globulin 2.7 g/dL (1.3-3.2); Glucose 107 mg/dl (74-100); HDL Cholesterol 44 mg/dl (40-60); Potassium 3.7 mmoL/L (3.5-5.1); Sodium 137 mmol/L (136-145); Total Protein,Serum 6.9 g/dl (6.3-8.2); Triglycerides 110 mg/dl (30-150)
== END 2025-05-12 23:59 | disposition home or self-care (01) ==
LOC: LAB 09:56
PROVIDERS: PCP Internal Medicine Adolescent Medicine; Visit Provider Nurse Practitioner Family
DX: Z00.00 Encounter for general adult medical examination without abnormal findings (principal); I10 Essential (primary) hypertension; E78.2 Mixed hyperlipidemia; R73.03 Prediabetes
CPT/HCPCS: 36415; 80053; 80061; 83036